=== PATIENT | female | born 1980 | race Caucasian/White ===

== ENCOUNTER 2017-01-28 18:26 | Emergency (ER) | payer OTHER ==
[2017-01-28 18:50] VITALS: BP 117/62
--- NOTE | 2017-01-28 19:26 | UC ---
Eye Complaint HPI - HPI Summary HPI Summary: The patient comes in today for: 1. Right eye swelling: Onset: 3 days ago. Palliative/provocative: Hot compresses and cold compresses helped it feel better. Quality: Dull ache, and itching. Region: Right upper eye lid Severity: 5/10 Time: Constant. Associated symptoms: Drainage: Positive--yellow Vision: Normal. No pain with movement of the globe of the eye with the eye lid closed. * - History of Current Complaint Chief Complaint: UCEye Stated Complaint: RIGHT EYE Time Seen by Provider: 01/28/17 19:21 Hx Obtained From: Patient Hx Last Menstrual Period: Mirena ?: No - Allergies/Home Medications Allergies/Adverse Reactions: Allergies Allergy/AdvReac Type Severity Reaction Status Date / Time No Known Allergies Allergy Verified 01/28/17 18:50 PMH/Surg Hx/FS Hx/Imm Hx Previously Healthy: No - Pt denies asthma, on albuterol because she is "a smoker." Opioid maintenanc Respiratory History: Asthma - Surgical History Surgical History: None - Family History Known Family History: Positive: Hypertension, Diabetes - Social History Occupation: Employed Full-time Alcohol Use: None Substance Use Type: None Substance Use Comment - Amount & Last Used: hx of opiates Smoking Status (MU): Current Some Day Smoker Amount Used/How Often: 1 cig.day Household Exposure Type: Cigarettes Review of Systems Constitutional: Negative Skin: Rash Eyes: Drainage, Eye Redness ENT: Negative Respiratory: Negative Cardiovascular: Negative Gastrointestinal: Negative Genitourinary: Negative Neurological: Headache All Other Systems Reviewed And Are Negative: Yes Physical Exam Triage Information Reviewed: Yes Appearance: Well-Appearing, No Pain Distress, Well-Nourished Vital Signs: Initial Vital Signs Temp 99.2 F 01/28/17 18:47 Pulse 70 01/28/17 18:47 Resp 16 01/28/17 18:47 BP 117/62 01/28/17 18:47 Pulse Ox 100 01/28/17 18:47 Vital Signs Reviewed: Yes Eyes: Positive: Conjunctiva Clear. Negative: Discharge ENT: Positive: Hearing grossly normal, Other: - Right upper eye lid: swollen and red. There is non-indurated swelling. EOMI and does not elicit pain. Most of the tenderness is of a focal area of the inner 1/3 of the upper eye lid. There is a 1 mm white spot at the edge of the eye lid.. Negative: Pharyngeal erythema, Nasal congestion, Nasal drainage, TM bulging, TM dull, TM red, Tonsillar swelling, Tonsillar exudate Dental: Negative: Gross Decay/Caries @, Dental Fracture @ Neck: Positive: Supple, Nontender, No Lymphadenopathy. Negative: Nuchal Rigidity Respiratory: Positive: Lungs clear, No respiratory distress, No accessory muscle use. Negative: Rhonchi, Wheezing Cardiovascular: Positive: RRR, No Murmur Abdomen Description: Positive: Nontender, No Organomegaly, Soft Musculoskeletal: Positive: Strength Intact, ROM Intact, Edema @ - Of the upper right eye lid. Neurological: Positive: Alert, Muscle Tone Normal Psychological: Positive: Age Appropriate Behavior, Consolable Skin: Negative: rashes, breakdown Eye Complaint Course/Dx - Course Course Of Treatment: Patient told of diagnosis and treatment options. - Differential Dx/Diagnosis Provider Diagnoses: Right upper eye lid stye. Early upper right eye lid cellulitis Discharge - Discharge Plan Condition: Stable Disposition: HOME Patient Education Materials: Stye (ED), Cellulitis (ED) Forms: *Work Release Referrals: Non Staff,Doctor [Primary Care Provider] - 1 Week (Please see your primary care provider later this week (or us if you are not able to be seen timely) to see how well you are doing. If you get worse, please go to the ER.) Additional Instructions: Start your treatment with warm compresses to the eye (as hot as you can stand without hurting yourself). Take the oral antibiotic. Be re-seen after several days to see how well you are doing. If you develop increasing redness and drainage from the white part of your eye, please start the eye drops. Sleep with your head elevated.
== END 2017-01-28 19:47 | disposition home or self-care (01) ==
LOC: UCCORT 18:26
DX: H00.011 Hordeolum externum right upper eyelid (principal); H00.031 Abscess of right upper eyelid; J45.909 Unspecified asthma, uncomplicated; Z72.0 Tobacco use
CPT/HCPCS: 99212; G0463